=== PATIENT | female | born 1940 | race Caucasian/White ===

== ENCOUNTER 2017-06-09 09:31 | Emergency (ER) | payer MEDICARE, OTHER ==
[~2017-06-09] VITALS: Ht 147.3 cm; Wt 72.0 kg
[~2017-06-09 09:31] MED LIST: CENTTAB9 PO; GLIP5 PO; LOSA50TA PO; METF-324 PO; NAPR220T95 PO; OMEP20CA5 PO; TRAM100T19 PO; XALA0.00 EACH EYE; ZOCO40TA PO
[2017-06-09 09:50] VITALS: BP 167/77; PULSE 90; RESP 24; TEMP 97.5; O2SAT 99
--- NOTE | 2017-06-09 09:57 | PD ---
HPI Chief Complaint: Back/ Neck Pain or Injury Time Seen by Provider: 09:55 Travel History International Travel<30 days: No Contact w/Intl Traveler<30days: No Traveled to known affect area: No History of Present Illness HPI Patient has intermittently had pain originates in her left buttock around mid buttock and radiates down the entire left leg. This was investigated with a bone scan performed at [facility] by by her oncologist which apparently was negative, it also led to a visit to her primary care Dr. Bhatti who gave the patient an injection at his office 3 days ago but the pain continues. Patient describes it as sharp pain radiating down the leg, 9 out of 10, makes walking very difficult, however there is no position that aggravates it or improves it or alleviates it. Allergy reported to penicillin Past medical significant for bilateral glaucoma, eye cataract surgery, hypercholesterolemia, hypertension, right breast lumpectomy, hiatal hernia, GERD , hysterectomy, diabetes, arthritis, PFSH Past Medical History Arthritis: Yes Blood Disorders: No Cancer: Yes (RIGHT BREAST) Cardiovascular Problems: No High Cholesterol: Yes Diabetes: Yes Endocrine: No Gastrointestinal Disorders: Yes GERD: Yes Glaucoma: Yes (BILAT) Genitourinary: No Hepatitis: No Hypertension: Yes Immune Disorder: No Musculoskeletal: Yes (ARTHRITIS) Neurologic: No Psychiatric: No Reproductive: No Respiratory: No Thyroid Disease: No Past Surgical History Abdominal Surgery: No AICD: No Cardiac Surgery: No Ear Surgery: No Endocrine Surgery: No Eye Surgery: No Genitourinary Surgery: No Gynecologic Surgery: Yes (CURT) Joint Replacement: No Oral Surgery: Yes (T & A) Pacemaker: No Thoracic Surgery: Yes (RIGHT BREAST LUMPECTOMY) Other Surgery: Yes Social History Alcohol Use: No Tobacco Use: Yes (QUIT 40 YRS) Substance Use: No Allergies-Medications (Allergen,Severity, Reaction): Coded Allergies: penicillin G (Unverified Allergy, Mild, Rash, 10/06/16) Reported Meds & Prescriptions Reported Meds & Active Scripts Active Review of Systems General / Constitutional: No: Fever Eyes: No: Visual changes HENT: No: Headaches Cardiovascular: No: Chest Pain or Discomfort Respiratory: No: Shortness of Breath Gastrointestinal: No: Abdominal Pain Genitourinary: No: Dysuria Musculoskeletal: Positive: Pain Skin: No Rash Neurologic: No: Weakness Psychiatric: No: Depression Endocrine: No: Polydipsia Hematologic/Lymphatic: No: Easy Bruising Physical Exam Narrative GENERAL: SKIN: Warm and dry. HEAD: Atraumatic. Normocephalic. EYES: Pupils equal and round. No scleral icterus. No injection or drainage. ENT: No nasal bleeding or discharge. Mucous membranes pink and moist. NECK: Trachea midline. No JVD. CARDIOVASCULAR: Regular rate and rhythm. RESPIRATORY: No accessory muscle use. Clear to auscultation. Breath sounds equal bilaterally. GASTROINTESTINAL: Abdomen soft, non-tender, nondistended. MUSCULOSKELETAL: Extremities without clubbing, cyanosis, or edema. No obvious deformities. SLR present NEUROLOGICAL: Awake and alert. No obvious cranial nerve deficits. Motor grossly within normal limits. Five out of 5 muscle strength in the arms and legs. Normal speech. PSYCHIATRIC: Appropriate mood and affect; insight and judgment normal. Data Data Last Documented VS Vital Signs Date Time Temp Pulse Resp B/P (MAP) Pulse Ox O2 Delivery O2 Flow Rate FiO2 06/09/17 09:50 97.5 90 24 167/77 (107) 99 Orders Orders Sacrum And Coccyx (06/09/17 ) Orphenadrine Inj (Norflex Inj) (06/09/17 10:15) Butorphanol Inj (Stadol Inj) (06/09/17 10:15) MDM Medical Decision Making Medical Screen Exam Complete: Yes Emergency Medical Condition: Yes Medical Record Reviewed: Yes Differential Diagnosis Sciatica versus arthritis versus dislocation versus fracture Narrative Course Upon evaluation of the bone scan the patient had recently done it does show that she had previous metastatic disease. And this is including to her sacrum which still shows the same level of uptake as it did before Diagnosis Primary Impression: Previous history of bone metastasis Additional Impressions: Arthritis Sciatica Patient Instructions: General Instructions, Sciatica (ED) Scripts Cyclobenzaprine (Flexeril) 10 Mg Tab 10 MG PO TID for Muscle Spasm, #15 TAB 0 Refills Prov: Damian Brandon MD 06/09/17 Oxycodone-Acetaminophen (Percocet) 10-325 mg Tab 1 TAB PO Q6H Y for PAIN, #12 TAB 0 Refills Prov: Damian Brandon MD 06/09/17 Disposition: 01 DISCHARGE HOME Condition: Stable Damian Brandon MD Jun 09, 2017 09:57
[2017-06-09] MEDS ORDERED: BUTORPHANOL TARTRATE INJ 1 MG/ML VIAL IM ONE (10:15)
[2017-06-09] MEDS ORDERED: ORPHENADRINE INJ 60 MG/2 ML AMP IM ONE (10:15)
--- NOTE | 2017-06-09 11:02 | RADRPT ---
EXAM DATE/TIME: 06/09/2017 10:27 [facility] COMPARISON: No previous studies available for comparison. INDICATIONS : Low back and left sciatic pain. No known injury. MEDICAL HISTORY : Carcinoma, breast. Diabetes. SURGICAL HISTORY : Lumpectomy. Thoracentesis. ENCOUNTER: Initial ACUITY: 3 days PAIN SCORE: 9/10 LOCATION: Left buttock FINDINGS: Degenerative changes L3-4 L4-5 and L5-S1 in the lumbar spine. Mild degenerative changes both SI join ts. I do not see fracture. CONCLUSION: Degenerative changes otherwise negative. Angel Sprague MD FACR on June 09, 2017 at 10:59 Board Certified Radiologist. This report was verified electronically.
[2017-06-09] MEDS ORDERED: PERC10TA27 PO (11:36)
[2017-06-09] MEDS ORDERED: CYCL10TA PO (11:36)
== END 2017-06-09 12:16 | disposition home or self-care (01) ==
LOC: NEPD 09:31
DX: M54.32 Sciatica, left side (principal); M19.90 Unspecified osteoarthritis, unspecified site; Z85.3 Personal history of malignant neoplasm of breast; Z85.830 Personal history of malignant neoplasm of bone; Z87.891 Personal history of nicotine dependence
CPT/HCPCS: 72220; 96372; 99283; J0595; J2360